=== PATIENT | female | born 1940 | race Two or more races ===

== ENCOUNTER 2018-02-08 12:54 | Emergency (ER) | payer MEDICAID ==
[2018-02-08] MEDS ORDERED: Sodium Chloride 0.9% 1,000 ML IV STA (13:14)
--- NOTE | 2018-02-08 13:17 | ED PDOC ---
HPI: General Adult Time Seen by Provider: 02/08/18 13:05 Chief Complaint (Nursing): GI Problem Chief Complaint (Provider): Dizziness History Per: Patient Additional Complaint(s): Pt. with dizziness like room spinning that started after eating something with garlic. Has had similar in the past when she ate something with garlic. Pt. had 1 episode of nonbloody vomit with it. No numbness, tingles, weakness, abd pain, chest pain, dyspnea. Past Medical History Reviewed: Nursing Documentation, Vital Signs Vital Signs: Last Vital Signs Temp 97.3 F L 02/08/18 12:55 Pulse 95 H 02/08/18 12:55 Resp 16 02/08/18 12:55 BP 116/60 02/08/18 12:55 Pulse Ox 96 02/08/18 13:30 - Medical History PMH: Asthma Other PMH: low blood pressure - Surgical History Surgical History: No Surg Hx Denies: CABG - Family History Family History: States: Unknown Family Hx - Living Arrangements Living Arrangements: With Family - Social History Alcohol: None Drugs: Denies - Home Medications Home Medications: Ambulatory Orders Medication Instructions Recorded Meclizine [Meclizine*] 25 mg PO Q12 PRN #10 tab 02/08/18 - Allergies Allergies/Adverse Reactions: Allergies Allergy/AdvReac Type Severity Reaction Status Date / Time tetracycline Allergy RASH Verified 02/08/18 12:58 [From Achromycin] Review of Systems ROS Statement: Except As Marked, All Systems Reviewed And Found Negative Gastrointestinal: Positive for: Nausea, Vomiting Neurological: Positive for: Dizziness Physical Exam - Reviewed Nursing Documentation Reviewed: Yes Vital Signs Reviewed: Yes - Physical Exam Appears: Positive for: Non-toxic, No Acute Distress Head Exam: Positive for: ATRAUMATIC, NORMAL INSPECTION, NORMOCEPHALIC Skin: Positive for: Normal Color, Warm, DRY Eye Exam: Positive for: EOMI, Normal appearance, PERRL ENT: Positive for: Normal ENT Inspection Neck: Positive for: Normal, Painless ROM Cardiovascular/Chest: Positive for: Regular Rate, Rhythm Respiratory: Positive for: CNT, Normal Breath Sounds Gastrointestinal/Abdominal: Positive for: Normal Exam, Soft. Negative for: Tenderness Back: Positive for: Normal Inspection. Negative for: L CVA Tenderness, R CVA Tenderness Extremity: Positive for: Normal ROM. Negative for: Tenderness, Pedal Edema Neurologic/Psych: Positive for: Alert, network relations consultant II-XII, Oriented. Negative for: Motor/Sensory Deficits, Facial Droop - Laboratory Results Result Diagrams: 02/08/18 13:36 02/08/18 13:36 Interpretation Of Abn Labs: no acute - ECG ECG: Positive for: Interpreted By Me, Viewed By Me ECG Rhythm: Positive for: Normal QRS, Normal ST Segment, Sinus Rhythm O2 Sat by Pulse Oximetry: 96 Pulse Ox Interpretation: Normal - CT Scan/US ct Other Rad Studies (CT/US): Read By Radiologist Other Rad Interpretation: no acute - Progress ED Course And Treament: 1532; Stable. No dizziness. AAOx3. Pain free. Tolerated PO. Disposition - Clinical Impression Clinical Impression: Dizziness Counseled Patient/Family Regarding: Studies Performed, Diagnosis, Need For Followup, Rx Given - Disposition Referrals: [facility] [Outside] - 02/09/18 Disposition: Routine/Home Disposition Time: 15:34 Condition: STABLE Additional Instructions: Return if not better in 3 days. Prescriptions: Meclizine [Meclizine*] 25 mg PO Q12 PRN #10 tab PRN Reason: Dizziness Instructions: Vertigo (a Type of Dizziness) Forms: [employer] (British) Print Language: COMORAN
[2018-02-08 13:41] LABS: BASO % 0.6 % (0.0-2.0); EOS # 0.1 K/uL (0.0-0.7); EOS % 0.9 % (0.0-4.0); HEMOGLOBIN 14.4 g/dL (12.0-16.0); LYMPH % 13.7 % (20.0-40.0); MEAN CELL VOLUME 93.1 fl (81.0-99.0); MEAN CORPUSCULAR HEMOGLOBIN 31.1 pg (27.0-31.0); MEAN CORPUSCULAR HGB CONC 33.4 g/dL (33.0-37.0); MEAN PLATELET VOLUME 9.7 fl (7.2-11.7); MONO # 0.6 K/uL (0.0-0.8); MONO % 8.4 % (0.0-10.0); NEUT # 5.6 K/uL (1.8-7.0); NEUT % 76.4 % (50.0-75.0); RBC 4.63 Mil/uL (3.80-5.20); RED CELL DISTRIBUTION WIDTH 14.5 % (11.5-14.5); WHITE BLOOD COUNT 7.3 K/uL (4.8-10.8)
[2018-02-08 13:51] LABS: PROTHROMBIN TIME 11.2 Seconds (9.8-13.1)
[2018-02-08 13:53] LABS: PARTIAL THROMBOPLASTIN TIME 29.6 Seconds (25.6-37.1)
[2018-02-08 14:00] LABS: ALB/GLOB RATIO 1.4 (1.0-2.1); ALBUMIN 4.1 g/dL (3.5-5.0); ALT/SGPT 26 U/L (9-52); AST/SGOT 28 U/L (14-36); BLOOD UREA NITROGEN 15 mg/dl (7-17); CALCIUM 9.3 mg/dL (8.4-10.2); GFR NON-AFRICAN AMERICAN 54
--- NOTE | 2018-02-08 14:13 | CT ---
Date of service: 02/08/2018 PROCEDURE: CT HEAD WITHOUT CONTRAST. HISTORY: headache COMPARISON: None available. TECHNIQUE: Axial computed tomography images were obtained through the head/brain without intravenous contrast. Radiation dose: Total exam DLP = 794.57 mGy-cm. This CT exam was performed using one or more of the following dose reduction techniques: Automated exposure control, adjustment of the mA and/or kV according to patient size, and/or use of iterative reconstruction technique. FINDINGS: HEMORRHAGE: No intracranial hemorrhage. BRAIN: There is minimal expansion of the ventricular sulcal sternal spaces compatible with diffuse cerebral atrophy. No cortical or medullary edema is appreciated and corticomedullary differentiation is within normal limits diffusely. There is no mass effect. Midline brain anatomy is unremarkable as well as posterior fossa contents. No suspicious extra-axial fluid collection appreciated. VENTRICLES: Unremarkable. No hydrocephalus. CALVARIUM: Unremarkable. PARANASAL SINUSES: Unremarkable as visualized. No significant inflammatory changes. MASTOID AIR CELLS: Unremarkable as visualized. No inflammatory changes. OTHER FINDINGS: None. IMPRESSION: Limited diffuse cerebral atrophy is appreciated on degenerative basis, age-appropriate. No acute intracranial findings by standard CT criteria. Follow-up CT or MRI are available if clinically warranted.
[2018-02-08 17:12] VITALS: BP 116/59; PULSE 68; RESP 14; TEMP 98.1; O2SAT 97
--- NOTE | 2018-02-08 18:35 | CARD ---
APPROVED REPORT Date of service: 02/08/2018 EKG Measurement Heart [id number] <Conclusion> Sinus bradycardia Nonspecific T wave abnormality Abnormal ECG
== END 2018-02-08 15:50 | disposition home or self-care (01) ==
LOC: H.ER 12:54
DX: R42 Dizziness and giddiness (principal); R11.10 Vomiting, unspecified
CPT/HCPCS: 70450; 80053; 84484; 85025; 85610; 85730; 93005; 99283; J7030